=== PATIENT | male | born 1950 | race Caucasian/White ===

== ENCOUNTER → 2017-04-25 | Outpatient (CLI) | payer MEDICARE, OTHER ==
[~2017-04-25] MED LIST: ASACOL; BUDE3CAP5; CELEBREX; CYMBALTA; HYDR-3820; HYDR-3820 PO; HYDROCODONE; METO-333; Multivitamins/Minerals Therap PO; NEBI5TAB8 PO; NEOM28.33 TOP; PRAM0.257; SCOP1PAT; SIMV40TA4; SIMVASTATIN
--- NOTE | 2017-04-25 11:14 | Diagnostic Imaging Report ---
EXAMINATION: Two views of the right hip. INDICATION: Right hip pain. FINDINGS: There is no fracture, dislocation, or radiopaque foreign body. There is minimal degenerative change with subchondral sclerosis and cyst formation seen without joint space narrowing noted. IMPRESSION: Minimal degenerative changes. No fracture is seen. Dictated by: Dictated on workstation # [id number]
== END ==
LOC: RAD 09:45
PROVIDERS: ATTEND Nurse Practitioner Family
DX: M25.551 Pain in right hip (principal)
CPT/HCPCS: 73502

== ENCOUNTER → 2017-09-27 | Outpatient (CLI) | payer MEDICARE, OTHER | LOC: CARD 11:58 | PROVIDERS: ATTEND Nurse Practitioner Family | DX: R01.0 Benign and innocent cardiac murmurs (principal) | CPT/HCPCS: 93306 ==

== ENCOUNTER → 2017-12-19 | Outpatient (CLI) | payer MEDICARE, OTHER ==
[~2017-12-19] VITALS: Ht 170.2 cm; Wt 84.8 kg
[~2017-12-19] MED LIST changes: +REGADENOSON 0.4 MG/5 ML SYR (LEXISCAN) IV ONE; -SCOP1PAT; +SCOP1PAT11
[2017-12-19] MEDS: CATHETER FLUSH 10 ML SYR IV PRN ×2 (07:42→09:04)
[2017-12-19 09:03] VITALS: BP 148/79
--- NOTE | 2017-12-19 20:40 | STRESS TEST ---
DATE OF SERVICE: 12/19/2017 LEXISCAN MYOVIEW STRESS TEST REPORT REFERRING PHYSICIAN: Dr. Jones. Baseline heart rate is 69, baseline blood pressure 148/79, baseline EKG is sinus rhythm with no ischemic changes. In summary, the patient was injected with 10.74 mCi of technetium-99 Myoview and the resting images were obtained. Then, the patient received 0.4 mg of Lexiscan followed by 33.0 mCi of technetium-99 Myoview. Throughout the test, there were no EKG changes. The resting and stress images were reviewed and compared in the short axis, horizontal long axis, and vertical long axis views. Review of the images showed good radiotracer uptake with no ischemia or infarction on SPECT images. SSS is 2, SDS 2, TID value 1.09. On the gated images, the left ventricle appeared to be in normal size with normal contractility. Calculated ejection fraction 63%. CONCLUSION: 1. The patient tolerated Lexiscan well. 2. No ischemia or infarction on SPECT images. 3. Normal left ventricular size with normal contractility. Calculated ejection fraction 63%. Job ID: [id number] DocumentID: [id number] Dictated Date: 12/19/2017 15:59:40 Escalator Mechanic Date: 12/19/2017 20:39:34 Dictated By: RONALD BALDWIN MD
== END ==
LOC: CARD 07:23
PROVIDERS: ATTEND Internal Medicine Cardiovascular Disease
DX: I35.0 Nonrheumatic aortic (valve) stenosis (principal); I11.0 Hypertensive heart disease with heart failure; I51.9 Heart disease, unspecified; E78.2 Mixed hyperlipidemia; G20 Parkinson's disease
CPT/HCPCS: 78452; 93017

== ENCOUNTER 2019-01-14 22:54 | Emergency (ER) | payer MEDICARE, OTHER ==
[~2019-01-14] VITALS: Ht 170.2 cm; Wt 84.8 kg
[~2019-01-14 22:54] MED LIST changes: -REGADENOSON 0.4 MG/5 ML SYR (LEXISCAN) IV ONE
[2019-01-14] MEDS ORDERED: LACTATED RINGERS 1,000 ML IV ONE (23:00)
[2019-01-14 23:24] LABS: BASOPHILS # (AUTO) 0.1 10^3/uL (0.0-0.1); BASOPHILS % (AUTO) 1 % (0-10); EOSINOPHILS % (AUTO) 0 % (0-10); HEMATOCRIT 44 % (40-54); HEMOGLOBIN 14.7 G/DL (13.3-17.7); LYMPHOCYTES % (AUTO) 19 % (12-44); MEAN CORPUSCULAR HEMOGLOBIN 29 PG (25-34); MEAN CORPUSCULAR HGB CONC 33 G/DL (32-36); MEAN CORPUSCULAR VOLUME 88 FL (80-99); MEAN PLATELET VOLUME 9.5 FL (7.4-10.4); MONOCYTES # (AUTO) 0.8 X 10^3 (0.0-1.0); MONOCYTES % (AUTO) 7 % (0-12); NEUTROPHILS # (AUTO) 7.6 X 10^3 (1.8-7.8); NEUTROPHILS % (AUTO) 73 % (42-75); PLATELET COUNT 451 10^3/uL (130-400); RED CELL DISTRIBUTION WIDTH 14.2 % (10.0-14.5); WHITE BLOOD COUNT 10.5 10^3/uL (4.3-11.0)
[2019-01-14 23:31] LABS: INR 1.2 (0.8-1.4); PROTHROMBIN TIME PATIENT 15.3 SEC (12.2-14.7)
[2019-01-14 23:40] LABS: ALANINE AMINOTRANSFERASE 32 U/L (0-55); ALBUMIN 4.2 GM/DL (3.2-4.5); BILIRUBIN,TOTAL 0.4 MG/DL (0.1-1.0); CARBON DIOXIDE 21 MMOL/L (21-32); CHLORIDE 106 MMOL/L (98-107); POTASSIUM 3.2 MMOL/L (3.6-5.0); SODIUM 143 MMOL/L (135-145); TOTAL PROTEIN 8.4 GM/DL (6.4-8.2)
[2019-01-14 23:55] LABS: ACETAMINOPHEN < 10 UG/ML (10-30); ALKALINE PHOSPHATASE 51 U/L (40-136); BUN/CREATININE RATIO 12; CALCIUM 9.5 MG/DL (8.5-10.1); CREATINE KINASE 589 U/L (30-200); CREATININE SERUM 1.16 MG/DL (0.60-1.30); GFR ESTIMATED > 60; GLUCOSE 112 MG/DL (70-105); MAGNESIUM 2.5 MG/DL (1.8-2.4)
[2019-01-15 00:12] LABS: TSH (THYROID ANALYZER) 1.56 UIU/ML (0.35-4.94)
[2019-01-15] MEDS ORDERED: 1/2 NS W/KCL 20 MEQ/L 1,000 ML IV SCH (00:30)
[2019-01-15 00:48] LABS: AMMONIA 19 UMOL/L (11-32)
[2019-01-15 01:33] LABS: BILIRUBIN,URINE NEGATIVE (NEGATIVE); CLARITY,URINE CLEAR; COLOR,URINE YELLOW; GLUCOSE, URINE (UA) NEGATIVE (NEGATIVE); KETONES,URINE NEGATIVE (NEGATIVE); LEUKOCYTE ESTERASE ,URINE NEGATIVE (NEGATIVE); NITRITE,URINE NEGATIVE (NEGATIVE); PH,URINE 6 (5-9); PROTEIN,URINE 2+ (NEGATIVE); UROBILINOGEN,URINE 1 MG/DL (NORMAL)
[2019-01-15 01:48] LABS: AMPHETAMINE SCREEN, URINE NEGATIVE (NEGATIVE); BACTERIA,URINE TRACE /HPF; BARBITURATE SCREEN URINE NEGATIVE (NEGATIVE); BENZODIAZEPINES SCREEN URINE NEGATIVE (NEGATIVE); CANNABINOID SCREEN, URINE NEGATIVE (NEGATIVE); COCAINE SCREEN URINE NEGATIVE (NEGATIVE); METHADONE STAT NEGATIVE (NEGATIVE); METHAMPHETAMINE SCREEN URINE S NEGATIVE (NEGATIVE); OPIATE SCREEN URINE NEGATIVE (NEGATIVE); OXYCODONE STAT POSITIVE (NEGATIVE); PROPOXYPHENE STAT NEGATIVE (NEGATIVE); RBC,URINE RARE /HPF; SQUAMOUS EPITHELIAL CELL,UR RARE /HPF; TRICYCLIC ANTIDEPRESSANTS SCRE NEGATIVE (NEGATIVE)
--- NOTE | 2019-01-15 03:47 | NUR ---
PT AMBULATED ABOUT 15 FEET IN HALLWAY, INITIALLY UNSTEADY ON HIS FEET THE PT STUMBLED TWICE, BUT AFTER GETTING ADJUSTED TO WALKING WAS ABLE TO WALK TO THE HALLWAY AND RETURN TO HIS ROOM W/O COMPLICATIONS.
[2019-01-15] MEDS ORDERED: OXYC-464 (03:51)
--- NOTE | 2019-01-15 03:51 | ED General ---
General Chief Complaint: Trauma-Non Activation Stated Complaint: BACK PAIN Nursing Triage Note: PT STATES HE FELL 3 TIMES TODAY, ONCE YESTERDAY, DENIES STRIKING HIS HEAD OR LOC, STATES HIS RIGHT ARM IS THE ONLY PART OF HIS BODY THAT IS HURTING HIM. Nursing Sepsis Screen: No Definite Risk Source of Information: Patient (EXTREMELY POOR HISTORIAN), EMS, Other (EX [id number]) History of Present Illness Date Seen by Provider: Jan 14, 2019 Time Seen by Provider: 22:53 Initial Comments PT ARRIVES VIA EMS FROM HOME EX [id number] STATES SHE HAS NOT SEEN HIM OR TALKED TO HIM IN 2 WEEKS, AND TONIGHT SHE WENT OVER TO VISIT HIM, AND WHEN HE ANSWERED THE DOOR, HE SLOWLY WENT TO THE FLOOR, AND ONTO HIS KNEES. NO ACTUAL INJURY. HE WAS ABLE TO GET UP AND THEY PLAYED [employer] AND HE WAS FINE MENTALLY AND DID NOT HAVE ANY DIFFICULTY PLAYING GAME AND IN FACT, HE WON THE GAME. SHE LATER CALLED EMS BECAUSE HE WAS FEELING WEAK AND A LITTLE DIZZY PT DOES NOT VOICE ANY COMPLAINTS TO ME ON ARRIVAL EMS BRINGS IN BOTTLES OF MEDICATIONS--OXYCODONE AND PRAMIPEXOLE RX FOR OXYCODONE #180, FILLED ON 12/20/18, WITH ONLY 3 PILLS LEFT IN BOTTLE ( WAS 30 DAY SUPPLY) --EX -[id number] REPORTS THAT HE WILL TAKE 3-4 AT A TIME , SEVERAL TIMES A DAY, INSTEAD OF 1 AT A TIME--SHE REPORTS THAT HE HAS A HISTORY OF DRUG ABUSE. RX FOR PRAMIPEXOLE FOR #270 FILLED ON 11/02/18 IS EMPTY ( WAS 30 DAY SUPPLY) PT ALSO USES CBD OIL [id number] ARRIVES , AND DURING COURSE OF ER STAY, SHE STATES HE JUST TOLD HER THAT HE FELL IN THE BATHROOM AND HIT HIS RIGHT FOREARM AND RIGHT SIDE OF HEAD AND BROKE HIS HEARING AID--PT IS UNABLE TO STATE HOW LONG AGO THIS OCCURRED. PT DOES NOT ANSWER WHEN ASKED BY STAFF WHEN THIS OCCURRED, AND HE DOES NOT GIVE ANY DETAILS. ON REVIEW OF OLD RECORDS, THIS IS A CHRONIC PROBLEM FOR PT AND HAS HISTORY OF PARKINSON'S DISEASE, WITH FREQUENT FALLS, AND MILD DEMENTIA. ALSO HAS HISTORY OF CHRONIC BACK PAIN PCP: DR. KILGORE Allergies and Home Medications Allergies Coded Allergies: No Known Drug Allergies (Unverified , 05/05/11) Home Medications Hydrocodone/Acetaminophen 1 Each Tablet, 1 EA PO Q4H PRN for PAIN Prescribed by: JOSE RAFAEL RIOJAS on 04/26/161626 Neomycin Farrell/Bacitrac Zn/Poly 28.3 Gm Oint...g., 0 GM TOP BID PRN for drainage/ itching Prescribed by: JOSE RAFAEL RIOJAS on 04/26/161626 [Multivitamins/Minerals Therap] 1 EA TABLET, 1 EA PO DAILY@0700 Prescribed by: JOSE RAFAEL RIOJAS on 04/26/161626 Review of Systems Review of Systems Constitutional: see HPI, dizziness, weakness EENTM: no symptoms reported Respiratory: no symptoms reported Cardiovascular: no symptoms reported; No syncope Gastrointestinal: no symptoms reported Genitourinary: no symptoms reported Musculoskeletal: no symptoms reported Skin: no symptoms reported Psychiatric/Neurological: See HPI, Pre-Existing Deficit (HX OF TREMORS) Hematologic/Lymphatic: No Symptoms Reported Immunological/Allergic: no symptoms reported Past Hbrtclz-Xjvjwn-Qyfqgy Hx Patient Social History Alcohol Use: Regular Use Alcohol Beverage of Choice: Beer Recreational Drug Use: Yes (THC, AND RX DRUG ABUSE/OVERUSE) Smoking Status: Never a Smoker Recent Foreign Travel: No Contact w/Someone Who Travel: No Recent Infectious Disease Expo: No Immunizations Up To Date Tetanus Booster (TDap): Unknown Seasonal Allergies Seasonal Allergies: No Past Medical History Surgeries: Yes (CERVICAL SPINE [id number]; COLONOSCOPY) Orthopedic Respiratory: No Cardiac: Yes High Cholesterol, Hypertension Neurological: Yes Dementia, Parkinson's Disease Reproductive Disorders: No Sexually Transmitted Disease: No HIV/AIDS: No Genitourinary: No Gastrointestinal: Yes (DIVERTICULOSIS NOTED ON SCREENING COLONOSCOPY) Diverticulosis Musculoskeletal: Yes (CHRONIC BACK AND NECK PAIN--S/P CERVICAL SPINE SURGERY; FREQUENT FALLS, IMPAIRED MOBILITY. ) Chronic Back Pain Endocrine: No HEENT: Yes (WERS GLASSES) Hearing Impairment: Hard of Hearing, Bilateral Hearing Aide Cancer: No Psychosocial: No Integumentary: No Blood Disorders: No Family Medical History Cancer, Cerebral Aneurysm Physical Exam Vital Signs Vital Signs - First Documented 01/14/19 22:55 Temp 98.9 Pulse 77 Resp 20 B/P (MAP) 151/72 (98) Pulse Ox 97 O2 Delivery Room Air Capillary Refill : Less Than 3 Seconds Height, Weight, BMI Height: 5'7.00" Weight: 187lbs. 0.0oz. 84.096246pb; 29.3 BMI Method:Stated General Appearance: WD/WN, Other (UNKEMPT, VERY FLAT AFFECT, BLANK STARE WITH OCCASIONAL LOOKING AROUND AND TRACKING, IS NOT ANSWERING MY QUESTIONS AND IS NOT TALKING ON ARRIVAL, BUT TALKS TO [id number] WHEN SHE ARRIVES. SHE DOES NOT VOICE ANY CONCERNS ABOUT ANY CHANGE IN HIS NORMAL MENTAL STATUS. ) HEENT: PERRL/EOMI, Other (GLASSES--DIRTY AND BENT) Neck: Normal Inspection, Non Tender Respiratory: Normal Breath Sounds, No Accessory Muscle Use, No Respiratory Distress Cardiovascular: Regular Rate, Rhythm, No Edema, No JVD, No Murmur, Normal Peripheral Pulses Gastrointestinal: Non Tender, Soft Back: No CVA Tenderness, No Vertebral Tenderness Extremity: Normal Capillary Refill, Non Tender, No Calf Tenderness, No Pedal Edema Neurologic/Psychiatric: No Motor/Sensory Deficits (GROSSLY INTACT), Other ( MENTATION NOTED ABOVE. UNABLE TO DETERMINE ORIENTATION ON ARRIVAL, BUT APPEARS TO BE ORIENTED TO PERSON AND PT-SOETRT-ME-LAW. SLOW MENTATION, GROSS TREMOR OF RIGHT ARM. THIS EVENTUALLY STOPS. ) Skin: Normal Color, Warm/Dry, Other (OLD BRUISE TO RIGHT PROXIMAL FOREARM-- YELLOW/BROWN IN COLOR. FULL ROM AND IS NOT TENDER ON PALPATION ) Focused Exam Lactate Level 01/15/19 00:10: Lactic Acid Level 1.49 Lactic Acid Level Progress/Results/Core Measures Suspected Sepsis Recent Fever Within 48 Hours: No Infection Criteria Present: None New/Unexplained Altered Menta: Yes Sepsis Screen: No Definite Risk SIRS Temperature:98.9 Pulse: 77 Respiratory Rate: 20 Laboratory Tests 01/14/19 23:05: White Blood Count 10.5 Blood Pressure 151 /72 Mean: 98 01/15/19 00:10: Lactic Acid Level 1.49 Laboratory Tests 01/14/19 23:05: Creatinine 1.16, INR Comment 1.2, Platelet Count 451H, Total Bilirubin 0.4 Results/Orders Lab Results Laboratory Tests Test 01/14/19 01:26 01/14/19 23:05 01/15/19 00:10 Range/Units Urine Color YELLOW Urine Clarity CLEAR Urine pH 6 5-9 Urine Specific [place] 1.025 H 1.016-1.022 Urine Protein 2+ H NEGATIVE Urine Glucose (UA) NEGATIVE NEGATIVE Urine Ketones NEGATIVE NEGATIVE Urine Nitrite NEGATIVE NEGATIVE Urine Bilirubin NEGATIVE NEGATIVE Urine Urobilinogen 1 NORMAL MG/DL Urine Leukocyte Esterase NEGATIVE NEGATIVE Urine RBC (Auto) 1+ H NEGATIVE Urine RBC RARE /HPF Urine WBC NONE /HPF Urine Squamous Epithelial Cells RARE /HPF Urine Crystals NONE /LPF Urine Bacteria TRACE /HPF Urine Casts NONE /LPF Urine Mucus LARGE H /LPF Urine Culture Indicated NO Urine Opiates Screen NEGATIVE NEGATIVE Urine Oxycodone Screen POSITIVE H NEGATIVE Urine Methadone Screen NEGATIVE NEGATIVE Urine Propoxyphene Screen NEGATIVE NEGATIVE Urine Barbiturates Screen NEGATIVE NEGATIVE Ur Tricyclic Antidepressants Screen NEGATIVE NEGATIVE Urine Phencyclidine Screen NEGATIVE NEGATIVE Urine Amphetamines Screen NEGATIVE NEGATIVE Urine Methamphetamines Screen NEGATIVE NEGATIVE Urine Benzodiazepines Screen NEGATIVE NEGATIVE Urine Cocaine Screen NEGATIVE NEGATIVE Urine Cannabinoids Screen NEGATIVE NEGATIVE White Blood Count 10.5 4.3-11.0 10^3/uL Red Blood Count 5.05 4.35-5.85 10^6/uL Hemoglobin 14.7 13.3-17.7 G/DL Hematocrit 44 40-54 % Mean Corpuscular Volume 88 80-99 FL Mean Corpuscular Hemoglobin 29 25-34 PG Mean Corpuscular Hemoglobin Concent 33 32-36 G/DL Red Cell Distribution Width 14.2 10.0-14.5 % Platelet Count 451 H 130-400 10^3/uL Mean Platelet Volume 9.5 7.4-10.4 FL Neutrophils (%) (Auto) 73 42-75 % Lymphocytes (%) (Auto) 19 12-44 % Monocytes (%) (Auto) 7 0-12 % Eosinophils (%) (Auto) 0 0-10 % Basophils (%) (Auto) 1 0-10 % Neutrophils # (Auto) 7.6 1.8-7.8 X 10^3 Lymphocytes # (Auto) 2.0 1.0-4.0 X 10^3 Monocytes # (Auto) 0.8 0.0-1.0 X 10^3 Eosinophils # (Auto) 0.0 0.0-0.3 10^3/uL Basophils # (Auto) 0.1 0.0-0.1 10^3/uL Prothrombin Time 15.3 H 12.2-14.7 SEC INR Comment 1.2 0.8-1.4 Activated Partial Thromboplast Time 36 H 24-35 SEC Sodium Level 143 135-145 MMOL/L Potassium Level 3.2 L 3.6-5.0 MMOL/L Chloride Level 106 98-107 MMOL/L Carbon Dioxide Level 21 21-32 MMOL/L Anion Gap 16 H 5-14 MMOL/L Blood Urea Nitrogen 14 7-18 MG/DL Creatinine 1.16 0.60-1.30 MG/DL Estimat Glomerular Filtration Rate > 60 BUN/Creatinine Ratio 12 Glucose Level 112 H 70-105 MG/DL Calcium Level 9.5 8.5-10.1 MG/DL Corrected Calcium 9.3 8.5-10.1 MG/DL Magnesium Level 2.5 H 1.8-2.4 MG/DL Total Bilirubin 0.4 0.1-1.0 MG/DL Aspartate Amino Transf (AST/SGOT) 29 5-34 U/L Alanine Aminotransferase (ALT/SGPT) 32 0-55 U/L Alkaline Phosphatase 51 40-136 U/L Ammonia 19 11-32 UMOL/L Total Creatine Kinase 589 H 30-200 U/L Creatine Kinase MB 2.0 <6.6 NG/ML Troponin I < 0.028 <0.028 NG/ML Total Protein 8.4 H 6.4-8.2 GM/DL Albumin 4.2 3.2-4.5 GM/DL TSH Mcpherson Testing 1.56 0.35-4.94 UIU/ML Acetaminophen Level < 10 L 10-30 UG/ML Serum Alcohol < 10 <10 MG/DL Lactic Acid Level 1.49 0.50-2.00 MMOL/L My Orders Orders - ZACH DEL RIO DO Saline Lock/Iv-Start (01/14/19:00) Chest 1 View, Ap/Pa Only (01/14/19:00) Acetaminophen (01/14/19:00) Alcohol (01/14/19:00) Ammonia (01/14/19:00) Cbc With Automated Diff (01/14/19:) Comprehensive Metabolic Panel (01/14/19:) Creatine Kinase (01/14/19:) Creatine Kinase Mb (01/14/19:) Drug Screen Stat (Urine) (01/14/19:) Lactic Acid Analyzer (01/14/19:) Magnesium (01/14/19:00) Protime With Inr (01/14/19:00) Partial Thromboplastin Time (01/14/19 23:00) Thyroid Analyzer (01/14/19 23:00) Troponin I (01/14/19 23:00) Ua Culture If Indicated (01/14/19 23:00) Blood Culture (01/14/19 23:00) Saline Lock/Iv-Start (01/14/19 23:00) Lactated Ringers (Lr 1000 Ml Iv Solution (01/14/19 23:00) Ekg Tracing (01/14/19:00) Catheter(Urinary) Insert & Ass 03,15 (01/14/19 23:00) O2 (01/14/19 23:00) Monitor-Rhythm Ecg Trace Only (01/14/19:00) Ct Head/Cervical Spine Wo (01/14/19 23:45) 1/2 Ns W/Kcl 20 Meq/L (0.45% Sodium Chlo (01/15/19 00:30) Medications Given in ED Current Medications Medications Dose Ordered Sig/Kendy Route Start Time Stop Time Status Last Admin Dose Admin Lactated Ringer's 1,000 ml @ 0 mls/hr Q0M ONCE IV 01/14/19 23:00 01/14/19 23:03 DC 01/14/19 23:10 1,000 MLS/HR Vital Signs/I&O 01/14/19 22:55 Temp 98.9 Pulse 77 Resp 20 B/P (MAP) 151/72 (98) Pulse Ox 97 O2 Delivery Room Air Capillary Refill : Less Than 3 Seconds Blood Pressure Mean: 98 Progress Note : Progress Note PT HAD NO COMPLAINTS FOR ENTIRE ER STAY 0205-PT STATES HE FEELS FINE AND WANTS TO GO BACK HOME, IV FLUIDS INFUSING 0345--PT ABLE TO AMBULATE IN ROOM AND TO ER HALLWAY ON OWN, PT STATES HE USES A WALKER AT HOME. PT FEELS COMFORTABLE GOING HOME. STATES HE FEELS FINE. PT APPEARS A LITTLE MORE ANIMATED AND IS TALKING A LITTLE MORE, AND ABLE TO FOLLOW COMMANDS, DURING ER STAY. VITALS STABLE NO DETERIORATION IN PT'S CONDITION DURING ER STAY ECG Initial ECG Impression Date: Jan 14, 2019 Initial ECG Impression Time: 23:22 Initial ECG Rate: 74 Initial ECG Rhythm: Normal Sinus Diagnostic Imaging Comments CXR--NO ACUTE PROCESS, PENDING RADIOLOGIST REVIEW CT HEAD/CERVICAL SPINE--NO ACUTE PROCESS, POST SURGICAL CHANGES C3-C4--PER [facility] VIA FAX @ [id number] Reviewed: Reviewed by Me Departure Impression Primary Impression: Generalized weakness Additional Impressions: EXCESSIVE USE OF OXYCODONE Frequent falls Parkinson disease MILD HYPOKALEMIA Disposition: HOME, SELF-CARE Condition: Stable Departure-Patient Inst. Referrals: MATTIE KILGORE MD (PCP/Family) Primary Care Physician Patient Instructions: Drug Abuse Treatment, Generalized Weakness (DC), Getting Up From a Fall, Going Up and Down Curbs or Stairs With a Walker or Crutches, How to Use a Walker, Preventing Falls in the Older Adult Add. Discharge Instructions: USE YOUR WALKER AT ALL TIMES SLOW POSITION CHANGES DO NOT TAKE MORE PAIN MEDICATION THAN PRESCRIBED!!! LOTS OF CLEAR LIQUIDS FOLLOW UP WITH YOUR DR IN 1-2 DAYS FOR FURTHER CARE All discharge instructions reviewed with patient and/or family. Voiced understanding. ZACH DEL RIO DO Jan 15, 2019 03:51
[2019-01-15 05:49] VITALS: BP 149/84
--- NOTE | 2019-01-15 06:53 | Diagnostic Imaging Report ---
PROCEDURE: CT head and CT cervical spine without contrast. TECHNIQUE: Multiple contiguous axial images were obtained through the brain and cervical spine without the use of intravenous contrast. Sagittal and coronal reformations through the cervical spine were then performed. Auto Exposure Controls were utilized during the CT exam to meet ALARA standards for radiation dose reduction. INDICATION: Status post fall. CORRELATION STUDY: 04/14/2016 FINDINGS: CT HEAD: Ventricles and sulci age-appropriate. No abnormal areas of decreased attenuation to suggest edema. No midline shift or mass effect. No intracranial hemorrhage. Basilar cisterns maintained. Bony calvarium intact. Paranasal sinuses and mastoid air cells clear. Examination is degraded by some patient motion artifact. CT CERVICAL SPINE: There is straightening and reversal of normal cervical lordosis. Postop change of prior anterior cervical decompression and fusion at C3-C4 level present. The vertebral body heights appear fairly well maintained with evidence for acute bony abnormality. Odontoid intact. The posterior elements are intact but do demonstrate asymmetric areas of hypertrophic facet arthropathy and asymmetric areas of effusion. Diffuse disc space narrowing. Minimal osseous encroachment upon the neural foramina and spinal canal present. High degree stenosis of the canal however does not appear to be suggested. IMPRESSION: CT HEAD: 1. Negative for acute traumatic intracranial abnormality. CT CERVICAL SPINE: 1. Negative for acute fracture or traumatic subluxation. A preliminary report was provided by [facility]. Dictated by: Dictated on workstation # [id number]
--- NOTE | 2019-01-15 07:01 | Diagnostic Imaging Report ---
INDICATION: Post fall. TECHNIQUE: Single view chest 11:32 PM. CORRELATION STUDY: 05/05/2011 FINDINGS: The heart size, mediastinal configuration and pulmonary vascularity are within normal limits. Likely chronic appearing change about the lung parenchyma. No infiltrate. Old right-sided rib fracture deformities. IMPRESSION: 1. Stable chest demonstrating no acute abnormality. Dictated by: Dictated on workstation # [id number]
== END 2019-01-15 06:00 | disposition home or self-care (01) ==
LOC: EDUNIT# 22:54 → ER 22:55
DX: R53.1 Weakness (principal); G20 Parkinson's disease; F02.80 Dementia in other diseases classified elsewhere, unspecified severity, without behavioral disturbance, psychotic disturbance, mood disturbance, and anxiety; E87.6 Hypokalemia; R29.6 Repeated falls; F12.10 Cannabis abuse, uncomplicated; E78.00 Pure hypercholesterolemia, unspecified; I10 Essential (primary) hypertension; Z87.19 Personal history of other diseases of the digestive system; Z98.1 Arthrodesis status
CPT/HCPCS: 36415; 70450; 71045; 72125; 80053; 80306; 80320; 80329; 81000; 82140; 82550; 82553; 83605; 83735; 84443; 84484; 85025; 85610; 85730; 87040; 93005; 93041; 96360; 96361

== ENCOUNTER 2019-03-14 14:13 | Emergency (ER) | payer MEDICARE, OTHER ==
[~2019-03-14] VITALS: Ht 170.2 cm; Wt 84.8 kg
[~2019-03-14 14:13] MED LIST changes: +OXYC-464
[2019-03-14] MEDS ORDERED: LACTATED RINGERS 1,000 ML IV ONE (14:24)
--- OUTSIDE RECORDS SUMMARY | 2019-03-14 14:24 | XMS REPORT | Continuity of Care Document ---
Author Organization Unknown Address Unknown Allergies Active Description Code Type Severity Reaction Onset Reported/Identified Relationship to Patient Clinical Status Yes No Known Drug Allergies [id number] Drug Allergy Unknown N/A 05/05/2011 Medications There is no data. Problems Date Dx Coded Attending Type Code Diagnosis Diagnosed By 05/26/2011 Ot 327.23 OBSTRUCTIVE SLEEP APNEA (ADULT) (PEDIATR 12/10/2011 Ot 722.52 LUMB/LUMBOSAC DISC DEGEN 12/10/2011 Ot 724.1 PAIN IN THORACIC SPINE 12/10/2011 Ot V57.1 PHYSICAL THERAPY NEC 09/18/2012 Ot 272.4 HYPERLIPIDEMIA NEC/NOS 09/18/2012 Ot 401.9 HYPERTENSION NOS 09/18/2012 Ot 562.10 DIVERTICULOSIS COLON (W/O MENT OF HEMORR 09/18/2012 Ot 715.90 OSTEOARTHROS NOS-UNSPEC 09/18/2012 Ot V16.0 FAMILY HX-GI MALIGNANCY 09/18/2012 Ot V76.51 SCREEN MAL NEOP- COLON 12/26/2015 Ot 276.51 12/26/2015 Ot 780.79 12/26/2015 Ot 786.05 12/26/2015 Ot 787.02 12/26/2015 Ot 786.05 12/26/2015 Ot 724.2 12/26/2015 Ot V72.84 12/29/2015 Ot 276.51 12/29/2015 Ot 780.79 12/29/2015 Ot 786.05 12/29/2015 Ot 787.02 12/29/2015 Ot 786.05 12/29/2015 Ot 724.2 12/29/2015 Ot V72.84 12/31/2015 MAGUI GAR, MATTIE Juarez Ot R26.0 01/01/2016 MATTIE KILGORE MD Ot R26.0 01/12/2016 Ot 276.51 01/12/2016 Ot 780.79 01/12/2016 Ot 786.05 01/12/2016 Ot 787.02 01/12/2016 Ot 786.05 01/12/2016 Ot 724.2 01/12/2016 Ot V72.84 01/12/2016 MAGUI GAR, MATTIE Juarez Ot R26.0 01/13/2016 Ot 276.51 01/13/2016 Ot 780.79 01/13/2016 Ot 786.05 01/13/2016 Ot 787.02 01/13/2016 Ot 786.05 01/13/2016 Ot 724.2 01/13/2016 Ot V72.84 01/13/2016 MAGUI GAR, MATTIE Juarez Ot R26.0 01/13/2016 MAGUI GAR, MATTIE Juarez Ot M62.81 01/13/2016 MAGUI GAR, MATTIE Juarez Ot M62.81 01/20/2016 MAGUI GAR, MATTIE Juarez Ot R26.0 02/06/2016 MAGUI GAR, MATTIE Juarez Ot M62.81 MUSCLE WEAKNESS (GENERALIZED) 02/06/2016 MATTIE KILGORE MD Ot M62.81 MUSCLE WEAKNESS (GENERALIZED) 02/13/2016 Ot 276.51 DEHYDRATION 02/13/2016 Ot 780.79 OTH MALAISE FATIGUE 02/13/2016 Ot 786.05 SHORTNESS OF BREATH 02/13/2016 Ot 787.02 NAUSEA ALONE 02/13/2016 Ot 786.05 SHORTNESS OF BREATH 02/13/2016 Ot 724.2 LUMBAGO 02/13/2016 Ot V72.84 EXAM PRE-OPERATIVE NOS 02/13/2016 MAGUI GAR, MATTIE Juarez Ot R26.0 ATAXIC GAIT 02/13/2016 MAGUI GAR, MATTIE Juarez Ot M62.81 MUSCLE WEAKNESS (GENERALIZED) 02/16/2016 MAGUI GAR, MATTIE Juarez Ot M46.05 SPINAL ENTHESOPATHY, THORACOLUMBAR REGIO 02/16/2016 MAGUI GAR, MATTIE Juarez Ot M46.05 SPINAL ENTHESOPATHY, THORACOLUMBAR REGIO 02/18/2016 MAGUI GAR, MATTIE Juarez Ot M62.81 MUSCLE WEAKNESS (GENERALIZED) 03/04/2016 MAGUI GAR, MATTIE Juarez Ot M46.05 SPINAL ENTHESOPATHY, THORACOLUMBAR REGIO 04/14/2016 Ot 276.51 DEHYDRATION 04/14/2016 Ot 780.79 OTH MALAISE FATIGUE 04/14/2016 Ot 786.05 SHORTNESS OF BREATH 04/14/2016 Ot 787.02 NAUSEA ALONE 04/14/2016 Ot 786.05 SHORTNESS OF BREATH 04/14/2016 Ot 724.2 LUMBAGO 04/14/2016 Ot V72.84 EXAM PRE-OPERATIVE NOS 04/14/2016 MAGUI GAR, MATTIE Juarez Ot R26.0 ATAXIC GAIT 04/14/2016 MAGUI GAR, MATTIE Juarez Ot M46.05 SPINAL ENTHESOPATHY, THORACOLUMBAR REGIO 04/20/2016 JOSE RAFAEL RIOJAS MD Ot E78.0 PURE HYPERCHOLESTEROLEMIA 04/20/2016 JOSE RAFAEL RIOJAS MD E Ot F10.20 ALCOHOL DEPENDENCE, UNCOMPLICATED 04/20/2016 JOSE RAFAEL RIOJAS MD Ot F12.90 CANNABIS USE, UNSPECIFIED, UNCOMPLICATED 04/20/2016 JOSE RAFAEL RIOJAS MD Ot G20 PARKINSON'S DISEASE 04/20/2016 JOSE RAFAEL RIOJAS MD E Ot I10 ESSENTIAL (PRIMARY) HYPERTENSION 04/20/2016 JOSE RAFAEL RIOJAS MD Ot K50.90 CROHN'S DISEASE, UNSPECIFIED, WITHOUT CO 04/20/2016 JOSE RAFAEL RIOJAS MD Ot M47.892 OTHER SPONDYLOSIS, CERVICAL REGION 04/20/2016 JOSE RAFAEL RIOJAS MD Ot S20.311D ABRASION OF RIGHT FRONT WALL OF THORAX, 04/20/2016 JOSE RAFAEL RIOJAS MD Ot S50.811D ABRASION OF RIGHT FOREARM, SUBSEQUENT EN 04/20/2016 JOSE RAFAEL RIOJAS MD E Ot S70.211D ABRASION, RIGHT HIP, SUBSEQUENT ENCOUNTE 04/20/2016 JOSE RAFAEL RIOJAS MD E Ot S80.211D ABRASION, RIGHT KNEE, SUBSEQUENT ENCOUNT 04/20/2016 JOSE RAFAEL RIOJAS MD E Ot W19.XXXD UNSPECIFIED FALL, SUBSEQUENT ENCOUNTER 04/20/2016 JOSE RAFAEL RIOJAS MD Ot Y92.[address] IN APARTMENT PLACE 04/20/2016 JOSE RAFAEL RIOJAS MD Ot Z91.81 HISTORY OF FALLING 04/21/2016 JOSE RAFAEL RIOJAS MD Ot E78.0 PURE HYPERCHOLESTEROLEMIA 04/21/2016 JOSE RAFAEL RIOJAS MD Ot F10.20 ALCOHOL DEPENDENCE, UNCOMPLICATED 04/21/2016 JOSE RAFAEL RIOJAS MD Ot F12.90 CANNABIS USE, UNSPECIFIED, UNCOMPLICATED 04/21/2016 JOSE RAFAEL RIOJAS MD E Ot G20 PARKINSON'S DISEASE 04/21/2016 RIOJAS MD, JOSE RAFAEL E Ot I10 ESSENTIAL (PRIMARY) HYPERTENSION 04/21/2016 JOSE RAFAEL RIOJAS MD E Ot K50.90 CROHN'S DISEASE, UNSPECIFIED, WITHOUT CO 04/21/2016 JOSE RAFAEL RIOJAS MD Ot M47.892 OTHER SPONDYLOSIS, CERVICAL REGION 04/21/2016 JOSE RAFAEL RIOJAS MD Ot S20.311D ABRASION OF RIGHT FRONT WALL OF THORAX, 04/21/2016 JOSE RAFAEL RIOJAS MD Ot S50.811D ABRASION OF RIGHT FOREARM, SUBSEQUENT EN 04/21/2016 JOSE RAFAEL RIOJAS MD E Ot S70.211D ABRASION, RIGHT HIP, SUBSEQUENT ENCOUNTE 04/21/2016 JOSE RAFAEL RIOJAS MD E Ot S80.211D ABRASION, RIGHT KNEE, SUBSEQUENT ENCOUNT 04/21/2016 JOSE RAFAEL RIOJAS MD Ot W19.XXXD UNSPECIFIED FALL, SUBSEQUENT ENCOUNTER 04/21/2016 JOSE RAFAEL RIOJAS MD E Ot Y92.[address] IN APARTMENT PLACE 04/21/2016 JOSE RAFAEL RIOJAS MD E Ot Z91.81 HISTORY OF FALLING 04/27/2016 JOSE RAFAEL RIOJAS MD E Ot E78.0 PURE HYPERCHOLESTEROLEMIA 04/27/2016 JOSE RAFAEL RIOJAS MD E Ot F10.20 ALCOHOL DEPENDENCE, UNCOMPLICATED 04/27/2016 JOSE RAFAEL RIOJAS MD E Ot F12.90 CANNABIS USE, UNSPECIFIED, UNCOMPLICATED 04/27/2016 JOSE RAFAEL RIOJAS MD E Ot G20 PARKINSON'S DISEASE 04/27/2016 JOSE RAFAEL RIOJAS MD Ot I10 ESSENTIAL (PRIMARY) HYPERTENSION 04/27/2016 JOSE RAFAEL RIOJAS MD E Ot K50.90 CROHN'S DISEASE, UNSPECIFIED, WITHOUT CO 04/27/2016 JOSE RAFAEL RIOJAS MD Ot M47.892 OTHER SPONDYLOSIS, CERVICAL REGION 04/27/2016 JOSE RAFAEL RIOJAS MD E Ot M47.896 OTHER SPONDYLOSIS, LUMBAR REGION 04/27/2016 JOSE RAFAEL RIOJAS MD Ot S20.311D ABRASION OF RIGHT FRONT WALL OF THORAX, 04/27/2016 JOSE RAFAEL RIOJAS MD Ot S50.811D ABRASION OF RIGHT FOREARM, SUBSEQUENT EN 04/27/2016 JOSE RAFAEL RIOJAS MD Ot S70.211D ABRASION, RIGHT HIP, SUBSEQUENT ENCOUNTE 04/27/2016 JOSE RAFAEL RIOJAS MD E Ot S80.211D ABRASION, RIGHT KNEE, SUBSEQUENT ENCOUNT 04/27/2016 BEULAH GAR, JOSE RAFAEL Yang Ot W19.XXXD UNSPECIFIED FALL, SUBSEQUENT ENCOUNTER 04/27/2016 BEULAH GAR, JOSE RAFAEL Yang Ot Y92.[address] IN APARTMENT PLACE 04/27/2016 BEULAH GAR, JOSE RAFAEL Yang Ot Z91.81 HISTORY OF FALLING 04/25/2017 Ot V72.84 EXAM PRE-OPERATIVE NOS 04/25/2017 MAGUI GAR, MATTIE Juarez Ot R26.0 ATAXIC GAIT 04/25/2017 MAGUI GAR, MATTIE Juarez Ot M46.05 SPINAL ENTHESOPATHY, THORACOLUMBAR REGIO 04/26/2017 DG MADDEN VIDEO CONFERENCE SPECIALIST Ot M25.551 PAIN IN RIGHT HIP 05/17/2017 DG MADDEN VIDEO CONFERENCE SPECIALIST Ot M25.551 PAIN IN RIGHT HIP 09/23/2017 Ot V72.84 EXAM PRE-OPERATIVE NOS 09/23/2017 MAGUI GAR, MATTIE Juarez Ot R26.0 ATAXIC GAIT 09/23/2017 MAGUI GAR, MATTIE Juarez Ot M46.05 SPINAL ENTHESOPATHY, THORACOLUMBAR REGIO 09/23/2017 DG MADDEN VIDEO CONFERENCE SPECIALIST Ot M25.551 PAIN IN RIGHT HIP 10/19/2017 DG MADDEN VIDEO CONFERENCE SPECIALIST Ot R01.0 BENIGN AND INNOCENT CARDIAC MURMURS 12/20/2017 RONALD BALDWIN MD Ot E78.2 MIXED HYPERLIPIDEMIA 12/20/2017 RONALD BALDWIN MD Ot G20 PARKINSON'S DISEASE 12/20/2017 RONALD BALDWIN MD Ot I11.0 HYPERTENSIVE HEART DISEASE WITH HEART FA 12/20/2017 RONALD BALDWIN MD Ot I35.0 NONRHEUMATIC AORTIC (VALVE) STENOSIS 12/20/2017 RONALD BALDWIN MD Ot I51.9 HEART DISEASE, UNSPECIFIED 12/25/2017 RONALD BALDWIN MD Ot E78.2 MIXED HYPERLIPIDEMIA 12/25/2017 RONALD BALDWIN MD Ot G20 PARKINSON'S DISEASE 12/25/2017 RONALD BALDWIN MD Ot I11.0 HYPERTENSIVE HEART DISEASE WITH HEART FA 12/25/2017 RONALD BALDWIN MD Ot I35.0 NONRHEUMATIC AORTIC (VALVE) STENOSIS 12/25/2017 RONALD BALDWIN MD Ot I51.9 HEART DISEASE, UNSPECIFIED 01/10/2018 NICOLASA GAR, RONALD Perez Ot E78.2 MIXED HYPERLIPIDEMIA 01/10/2018 NICOLASA GAR, RONALD Perez Ot G20 PARKINSON'S DISEASE 01/10/2018 NICOLASA GAR, RONALD Perez Ot I11.0 HYPERTENSIVE HEART DISEASE WITH HEART FA 01/10/2018 NICOLASA GAR, RONALD Perez Ot I35.0 NONRHEUMATIC AORTIC (VALVE) STENOSIS 01/10/2018 NICOLASA GAR, RONALD Perez Ot I51.9 HEART DISEASE, UNSPECIFIED 01/15/2019 QUANG DO, ZACH K Ot E78.00 PURE HYPERCHOLESTEROLEMIA, UNSPECIFIED 01/15/2019 QUANG DO, ZACH K Ot E87.6 HYPOKALEMIA 01/15/2019 QUANG DO, ZACH K Ot F02.80 DEMENTIA IN OTH DISEASES CLASSD ELSWHR W 01/15/2019 QUANG DO, ZACH K Ot F12.10 CANNABIS ABUSE, UNCOMPLICATED 01/15/2019 QUANG DO, ZACH K Ot G20 PARKINSON'S DISEASE 01/15/2019 QUANG DO, ZACH K Ot I10 ESSENTIAL (PRIMARY) HYPERTENSION 01/15/2019 QUANG DO, ZACH K Ot M54.9 DORSALGIA, UNSPECIFIED 01/15/2019 QUANG DO, ZACH K Ot R29.6 REPEATED FALLS 01/15/2019 QUANG DO, ZACH K Ot R53.1 WEAKNESS 01/15/2019 QUANG DO, ZACH K Ot Z87.19 PERSONAL HISTORY OF OTHER DISEASES OF TH 01/15/2019 QUANG ZACH K Ot Z98.1 ARTHRODESIS STATUS 01/17/2019 QAUNG DO, ZACH K Ot E78.00 PURE HYPERCHOLESTEROLEMIA, UNSPECIFIED 01/17/2019 QUANG DO, ZACH K Ot E87.6 HYPOKALEMIA 01/17/2019 QUANG DO, ZACH K Ot F02.80 DEMENTIA IN OTH DISEASES CLASSD ELSWHR W 01/17/2019 QUANG DO ZACH K Ot F12.10 CANNABIS ABUSE, UNCOMPLICATED 01/17/2019 QUANG DO, ZACH K Ot G20 PARKINSON'S DISEASE 01/17/2019 QUANG DO, ZACH K Ot I10 ESSENTIAL (PRIMARY) HYPERTENSION 01/17/2019 QUANG DO, ZACH K Ot M54.9 DORSALGIA, UNSPECIFIED 01/17/2019 VINT[place] , ZACH Trinidad Ot R29.6 REPEATED FALLS 01/17/2019 [place] , ZACH Trinidad Ot R53.1 WEAKNESS 01/17/2019 [place] ZACH DEXTER Ot Z87.19 PERSONAL HISTORY OF OTHER DISEASES OF 01/17/2019 QUANG ZACH DEXTER Ot Z98.1 ARTHRODESIS STATUS 01/20/2019 [place] ZACH DEXTER Ot E78.00 PURE HYPERCHOLESTEROLEMIA, UNSPECIFIED 01/20/2019 [place] DO, ZACH K Ot E87.6 HYPOKALEMIA 01/20/2019 [place] DO, ZACH K Ot F02.80 DEMENTIA IN OTH DISEASES CLASSD ELSWHR W 01/20/2019 QUANG DO ZACH K Ot F12.10 CANNABIS ABUSE, UNCOMPLICATED 01/20/2019 [place] DO, ZACH K Ot G20 PARKINSON'S DISEASE 01/20/2019 [facility] ZACH K Ot I10 ESSENTIAL (PRIMARY) HYPERTENSION 01/20/2019 [facility] ZACH Trinidad Ot M54.9 DORSALGIA, UNSPECIFIED 01/20/2019 [facility], ZACH Trinidad Ot R29.6 REPEATED FALLS 01/20/2019 [place] ZACH DEXTER Ot R53.1 WEAKNESS 01/20/2019 QUANG DOZACH Ot Z87.19 PERSONAL HISTORY OF OTHER DISEASES OF 01/20/2019 QUANG ZACH DEXTER Ot Z98.1 ARTHRODESIS STATUS 01/29/2019 Ot 276.51 DEHYDRATION 01/29/2019 Ot 780.79 OTH MALAISE FATIGUE 01/29/2019 Ot 786.05 SHORTNESS OF BREATH 01/29/2019 Ot 787.02 NAUSEA ALONE 01/29/2019 Ot 786.05 SHORTNESS OF BREATH 01/29/2019 Ot 724.2 LUMBAGO 01/30/2019 [facility] ZACH Trinidad Ot E78.00 PURE HYPERCHOLESTEROLEMIA, UNSPECIFIED 01/30/2019 [place] DO, ZACH K Ot E87.6 HYPOKALEMIA 01/30/2019 QUANG DO, ZACH K Ot F02.80 DEMENTIA IN OTH DISEASES CLASSD ELSWHR W 01/30/2019 QUANG DO ZACH K Ot F12.10 CANNABIS ABUSE, UNCOMPLICATED 01/30/2019 QUANG DO, ZACH K Ot G20 PARKINSON'S DISEASE 01/30/2019 ZACH DEL RIO DO Ot I10 ESSENTIAL (PRIMARY) HYPERTENSION 01/30/2019 ZACH DEL RIO DO Ot M54.9 DORSALGIA, UNSPECIFIED 01/30/2019 ZACH DEL RIO DO Ot R29.6 REPEATED FALLS 01/30/2019 ZACH DEL RIO DO Ot R53.1 WEAKNESS 01/30/2019 ZACH DEL RIO DO Ot Z87.19 PERSONAL HISTORY OF OTHER DISEASES OF TH 01/30/2019 ZACH DEL RIO DO Ot Z98.1 ARTHRODESIS STATUS Procedures There is no data. Results Test Result Range Complete urinalysis with reflex to culture - 01/14/19 01:26 Urine color determination YELLOW NRG Urine clarity determination CLEAR NRG Urine pH measurement by test strip 6 5-9 Specific gravity of urine by test strip 1.025 1.016-1.022 Urine protein assay by test strip, semi-quantitative 2+ NEGATIVE Urine glucose detection by automated test strip NEGATIVE NEGATIVE Erythrocytes detection in urine sediment by light microscopy 1+ NEGATIVE Urine ketones detection by automated test strip NEGATIVE NEGATIVE Urine nitrite detection by test strip NEGATIVE NEGATIVE Urine total bilirubin detection by test strip NEGATIVE NEGATIVE Urine urobilinogen measurement by automated test strip (mass/volume) 1 mg/dL NORMAL Urine leukocyte esterase detection by dipstick NEGATIVE NEGATIVE Automated urine sediment erythrocyte count by microscopy (number/high power field) RARE NRG Automated urine sediment leukocyte count by microscopy (number/high power field) NONE NRG Bacteria detection in urine sediment by light microscopy TRACE NRG Squamous epithelial cells detection in urine sediment by light microscopy RARE NRG Crystals detection in urine sediment by light microscopy NONE NRG Casts detection in urine sediment by light microscopy NONE NRG Mucus detection in urine sediment by light microscopy LARGE NRG Complete urinalysis with reflex to culture NO NRG Urine drug screening test - 01/14/19 01:26 Urine phencyclidine detection by screening method NEGATIVE NEGATIVE Urine benzodiazepines detection by screening method NEGATIVE NEGATIVE Urine cocaine detection NEGATIVE NEGATIVE Urine amphetamines detection by screening method NEGATIVE NEGATIVE Urine methamphetamine detection by screening method NEGATIVE NEGATIVE Urine cannabinoids detection by screening method NEGATIVE NEGATIVE Urine opiates detection by screening method NEGATIVE NEGATIVE Urine barbiturates detection NEGATIVE NEGATIVE Screening urine tricyclic antidepressants detection NEGATIVE NEGATIVE Urine methadone detection by screening method NEGATIVE NEGATIVE Urine oxycodone detection POSITIVE NEGATIVE Urine propoxyphene detection NEGATIVE NEGATIVE Complete blood count (CBC) with automated white blood cell (WBC) differential - 01/14/19 23:05 Blood leukocytes automated count (number/volume) 10.5 10*3/uL 4.3-11.0 Blood erythrocytes automated count (number/volume) 5.05 10*6/uL 4.35-5.85 Venous blood hemoglobin measurement (mass/volume) 14.7 g/dL 13.3-17.7 Blood hematocrit (volume fraction) 44 % 40-54 Automated erythrocyte mean corpuscular volume 88 [foz_us] 80-99 Automated erythrocyte mean corpuscular hemoglobin (mass per erythrocyte) 29 pg 25-34 Automated erythrocyte mean corpuscular hemoglobin concentration measurement (mass/volume) 33 g/dL 32-36 Automated erythrocyte distribution width ratio 14.2 % 10.0- 14.5 Automated blood platelet count (count/volume) 451 10*3/uL 130-400 Automated blood platelet mean volume measurement 9.5 [foz_us] 7.4-10.4 Automated blood neutrophils/100 leukocytes 73 % 42-75 Automated blood lymphocytes/100 leukocytes 19 % 12-44 Blood monocytes/100 leukocytes 7 % 0-12 Automated blood eosinophils/100 leukocytes 0 % 0-10 Automated blood basophils/100 leukocytes 1 % 0-10 Blood neutrophils automated count (number/volume) 7.6 10*3 1.8-7.8 Blood lymphocytes automated count (number/volume) 2.0 10*3 1.0-4.0 Blood monocytes automated count (number/volume) 0.8 10*3 0.0- 1.0 Automated eosinophil count 0.0 10*3/uL 0.0-0.3 Automated blood basophil count (count/volume) 0.1 10*3/uL 0.0-0.1 PT panel in platelet poor plasma by coagulation assay - 01/14/19 23:05 Prothrombin time (PT) in platelet poor plasma by coagulation assay 15.3 s 12.2-14.7 INR in platelet poor plasma or blood by coagulation assay 1.2 0.8-1.4 Activated partial thromboplastin time (aPTT) in platelet poor plasma bycoagulation assay - 01/14/19 23:05 Activated partial thromboplastin time (aPTT) in platelet poor plasma bycoagulation assay 36 s 24-35 Comprehensive metabolic panel - 01/14/19 23:05 Serum or plasma sodium measurement (moles/volume) 143 mmol/L 135-145 Serum or plasma potassium measurement (moles/volume) 3.2 mmol/L 3.6-5.0 Serum or plasma chloride measurement (moles/volume) 106 mmol/L 98-107 Carbon dioxide 21 mmol/L 21-32 Serum or plasma anion gap determination (moles/volume) 16 mmol/L 5-14 Serum or plasma urea nitrogen measurement (mass/volume) 14 mg/dL 7-18 Serum or plasma creatinine measurement (mass/volume) 1.16 mg/dL 0.60-1.30 Serum or plasma urea nitrogen/creatinine mass ratio 12 NRG Serum or plasma creatinine measurement with calculation of estimated glomerular filtration rate > NRG Serum or plasma glucose measurement (mass/volume) 112 mg/dL 70-105 Serum or plasma calcium measurement (mass/volume) 9.5 mg/dL 8.5-10.1 Serum or plasma total bilirubin measurement (mass/volume) 0.4 mg/dL 0.1-1.0 Serum or plasma alkaline phosphatase measurement (enzymatic activity/volume) 51 U/L 40-136 Serum or plasma aspartate aminotransferase measurement (enzymatic activity/volume) 29 U/L 5-34 Serum or plasma alanine aminotransferase measurement (enzymatic activity/volume) 32 U/L 0-55 Serum or plasma protein measurement (mass/volume) 8.4 g/dL 6.4-8.2 Serum or plasma albumin measurement (mass/volume) 4.2 g/dL 3.2-4.5 CALCIUM CORRECTED 9.3 mg/dL 8.5-10.1 Magnesium - 01/14/19 23:05 Magnesium 2.5 mg/dL 1.8-2.4 Serum or plasma creatine kinase measurement (enzymatic activity/volume) - 01/14/19 23:05 Serum or plasma creatine kinase measurement (enzymatic activity/volume) 589 U/L 30-200 Serum or plasma creatine kinase MB measurement (enzymatic activity/volume) - 01/14/19 23:05 Serum or plasma creatine kinase MB measurement (enzymatic activity/volume) 2.0 ng/mL <6.6 Serum or plasma troponin i.cardiac measurement (mass/volume) - 01/14/19 23:05 Serum or plasma troponin i.cardiac measurement (mass/volume) < ng/mL <0.028 Ammonia - 01/14/19 23:05 Ammonia 19 umol/L 11-32 Serum or plasma thyrotropin measurement by detection limit <=0.05 miu/l (units/volume) - 01/14/19 23:05 Serum or plasma thyrotropin measurement by detection limit <=0.05 miu/l (units/volume) 1.56 u[iU]/mL 0.35-4.94 Serum or plasma acetaminophen measurement (mass/volume) - 01/14/19 23:05 Serum or plasma acetaminophen measurement (mass/volume) < ug/mL 10-30 Serum or plasma ethanol measurement (mass/volume) - 01/14/19 23:05 Serum or plasma ethanol measurement (mass/volume) < mg/dL <10 Blood lactic acid measurement (moles/volume) - 01/15/19 00:10 Blood lactic acid measurement (moles/volume) 1.49 mmol/L 0.50- 2.00 Bacterial blood culture - 01/15/19 00:10 Bacterial blood culture NG NRG Bacterial blood culture - 01/15/19 00:21 Bacterial blood culture NG NRG Encounters ACCT No. Visit Date/Time Discharge Status Pt. Type Provider Facility Loc./Unit Complaint [id number] 01/14/2019 22:55:00 01/15/2019 06:00:00 DIS Outpatient ZACH DEL RIO DO [facility] ER BACK PAIN [id number] 12/19/2017 07:23:00 12/19/2017 23:59:59 CLS Outpatient RONALD BALDWIN MD [facility] CARD I35.0 [id number] 11/01/2017 10:08:00 11/01/2017 23:59:59 CLS Preadmit SAMMI GRAY [facility] CARD I10,J43.8,I65.23 [id number] 11/01/2017 10:07:00 11/01/2017 23:59:59 CLS Preadmit RONALD BALDWIN MD [facility] CARD I35.0,I51.9,10 [id number] 09/27/2017 11:58:00 09/27/2017 23:59:59 CLS Outpatient DG MADDEN APRN [facility] CARD R01.0 HEAR MURMUR [id number] 04/25/2017 09:45:00 04/25/2017 23:59:59 CLS Outpatient DG MADDEN APRN [facility] RAD M25.551 [id number] 04/14/2016 19:33:00 04/27/2016 09:39:00 DIS Inpatient JOSE RAFAEL RIOJAS MD [facility] IRF DX PARKINSON'S DX [id number] 02/18/2016 13:45:00 02/18/2016 14:21:00 DIS Outpatient MATTIE KILGORE MD [facility] REHAB LOWER EXTREMITY WEAKNESS [id number] 02/13/2016 13:08:00 02/13/2016 23:59:59 CLS Outpatient MATTIE KILGORE MD [facility] RAD SPINAL ENTHESOPATHY [id number] 12/29/2015 08:34:00 12/29/2015 23:59:59 CLS Outpatient MATTIE KILGORE MD [facility] RAD PARKINSONS DISEASE [id number] 01/29/2019 13:35:00 Document Registration [id number] 12/26/2015 10:17:00 Document Registration [id number] 09/18/2012 12:20:00 Document Registration [id number] 09/12/2012 07:33:00 Document Registration [id number] 12/10/2011 12:43:00 Document Registration [id number] 06/14/2011 14:32:00 Document Registration [id number] 05/25/2011 19:43:00 Document Registration [id number] 05/05/2011 14:05:00 Document Registration [id number] 05/05/2011 08:30:00 Document Registration
[2019-03-14 14:49] LABS: INR 1.3 (0.8-1.4); PROTHROMBIN TIME PATIENT 17.1 SEC (12.2-14.7)
[2019-03-14 14:53] LABS: BUN/CREATININE RATIO 25; CARBON DIOXIDE 21 MMOL/L (21-32); CHLORIDE 103 MMOL/L (98-107); CREATININE SERUM 0.92 MG/DL (0.60-1.30); POTASSIUM 4.3 MMOL/L (3.6-5.0); SODIUM 152 MMOL/L (135-145)
[2019-03-14 14:54] LABS: ALANINE AMINOTRANSFERASE 39 U/L (0-55); ALBUMIN 3.7 GM/DL (3.2-4.5); ALKALINE PHOSPHATASE 44 U/L (40-136); BILIRUBIN,TOTAL 0.5 MG/DL (0.1-1.0); CALCIUM 8.5 MG/DL (8.5-10.1); CREATINE KINASE 1653 U/L (30-200); GFR ESTIMATED > 60; GLUCOSE 95 MG/DL (70-105); MAGNESIUM 1.8 MG/DL (1.8-2.4); TOTAL PROTEIN 7.4 GM/DL (6.4-8.2)
[2019-03-14 14:56] LABS: BASOPHILS % (AUTO) 0 % (0-10); EOSINOPHILS % (AUTO) 0 % (0-10); HEMATOCRIT 52 % (40-54); HEMOGLOBIN 17.2 G/DL (13.3-17.7); LYMPHOCYTES # (AUTO) 1.1 X 10^3 (1.0-4.0); LYMPHOCYTES % (AUTO) 7 % (12-44); MEAN CORPUSCULAR HEMOGLOBIN 28 PG (25-34); MEAN CORPUSCULAR HGB CONC 33 G/DL (32-36); MEAN CORPUSCULAR VOLUME 84 FL (80-99); MEAN PLATELET VOLUME 9.5 FL (7.4-10.4); MONOCYTES # (AUTO) 1.2 X 10^3 (0.0-1.0); MONOCYTES % (AUTO) 8 % (0-12); NEUTROPHILS # (AUTO) 12.2 X 10^3 (1.8-7.8); NEUTROPHILS % (AUTO) 84 % (42-75); PLATELET COUNT 377 10^3/uL (130-400); RED CELL DISTRIBUTION WIDTH 15.2 % (10.0-14.5); WHITE BLOOD COUNT 14.5 10^3/uL (4.3-11.0)
[2019-03-14 15:06] LABS: CREATINE KINASE MB 13.1 NG/ML (<6.6)
[2019-03-14 15:18] LABS: BASOPHILS % (MANUAL) 1 %; LYMPHOCYTES % (MANUAL) 9 %; MONOCYTES % (MANUAL) 7 %; NEUTROPHILS % (MANUAL) 83 %; RBC MORPH NORMAL
[2019-03-14] MEDS ORDERED: NS IV 1000 ML 1,000 ML IV ONE (15:33)
--- NOTE | 2019-03-14 15:36 | Diagnostic Imaging Report ---
PROCEDURE: CT head and CT cervical spine without contrast. TECHNIQUE: Multiple contiguous axial images were obtained through the brain and cervical spine without the use of intravenous contrast. Sagittal and coronal reformations through the cervical spine were then performed. Auto Exposure Controls were utilized during the CT exam to meet ALARA standards for radiation dose reduction. INDICATION: Found on floor. COMPARISON: Correlation is made with prior CT from 01/14/2019. FINDINGS: CT head: The ventricles and sulci are stable in appearance. No sulcal effacement, midline shift, or hemorrhage is detected. Cisterns are patent. Visualized paranasal sinuses are clear. IMPRESSION: No acute intracranial process is detected. CT cervical spine: Postop changes of ACDF with anterior plate and screws transfixing the C3-C4 level are again noted. Hardware appears to be intact. No fractures are identified. Prevertebral tissues are within normal limits. Odontoid appears intact. There is generalized degenerative disc disease with disc space narrowing and marginal spurring. IMPRESSION: Cervical spondylosis and postsurgical changes. No acute bony abnormality is detected. Dictated by: Dictated on workstation # [id number]
--- NOTE | 2019-03-14 15:47 | Diagnostic Imaging Report ---
PROCEDURE: CT thoracic and lumbar spine without contrast. TECHNIQUE: Multiple contiguous axial images were obtained through the thoracic and lumbar spine without the use of intravenous contrast. Sagittal and coronal reformations were then performed. INDICATION: Found on floor. FINDINGS: There is mild right convexity thoracic scoliotic curvature. There is slight left convexity lumbar scoliotic curvature. This is best seen on the coronal reconstructions. The most upper portion of thoracic spine does not appear to be included on this study. However, this was included on the CT cervical spine portion. Vertebral body heights appear to be maintained. There is some generalized thoracic and lumbar spondylosis with variable disc space narrowing and spurring. No fractures are identified. Paraspinous tissues are unremarkable. There is some atelectasis in the left lower lobe posteriorly. IMPRESSION: Thoracolumbar spondylosis and scoliosis. No acute bony abnormality is detected. Dictated by: Dictated on workstation # [id number]
[2019-03-14] MEDS ORDERED: TETANUS,DIPTH,PERTUSS P/F (BOOSTRIX) 0.5 ML VIAL IM ONE (16:00)
[2019-03-14 16:29] LABS: BILIRUBIN,URINE NEGATIVE (NEGATIVE); CLARITY,URINE CLEAR; COLOR,URINE AMBER; GLUCOSE, URINE (UA) NEGATIVE (NEGATIVE); KETONES,URINE 4+ (NEGATIVE); LEUKOCYTE ESTERASE ,URINE NEGATIVE (NEGATIVE); NITRITE,URINE NEGATIVE (NEGATIVE); PH,URINE 6 (5-9); PROTEIN,URINE 3+ (NEGATIVE); UROBILINOGEN,URINE 1 MG/DL (NORMAL)
--- NOTE | 2019-03-14 16:29 | Diagnostic Imaging Report ---
INDICATION: Fall. COMPARISON: 01/14/2019. EXAMINATION: Single view of the chest was obtained. FINDINGS: Old right rib deformities, chronic. No acute chest wall fracture deformity identified. No pneumothorax. Cardiomediastinal and hilar contours are stable. No free air beneath the diaphragms. IMPRESSION: Stable chronic findings. Dictated by: Dictated on workstation # [id number]
--- NOTE | 2019-03-14 16:30 | Diagnostic Imaging Report ---
INDICATION: Pelvic injury from a fall. EXAMINATION: Single view pelvis. FINDINGS: AP view of the pelvis shows no fracture or dislocation. IMPRESSION: No acute abnormality seen in the pelvis. Dictated by: Dictated on workstation # [id number]
[2019-03-14 16:43] LABS: BACTERIA,URINE NEGATIVE /HPF; SQUAMOUS EPITHELIAL CELL,UR RARE /HPF
--- NOTE | 2019-03-14 16:49 | NUR ---
TALKED WITH GU[facility]MAN JONES WHO STATES IT WILL BE AWILE BEFORE THEY CAN TRANSFER TO [facility] DUE TO MULTIPLE TRANSFERS. TALKED WITH [facility] WHO WILL CALL US BACK CONCERNING A TRANSFER. TALKED WITH DAVID LARA FROM [facility] WHO WILL CALL US BACK CONCERNING THE TRANSFER.
--- NOTE | 2019-03-14 17:03 | NUR ---
WILL FROM [facility] CALLED BACK ET STATES [facility] WILL BE HERE IN ABOUT AN HOUR TO TRANSPORT THE PT.
[2019-03-14 18:33] VITALS: BP 149/80
[2019-03-14] MEDS ORDERED: CARB1TAB19 (18:36)
[2019-03-14] MEDS ORDERED: LEVO50TA6 (18:36)
[2019-03-14] MEDS ORDERED: PRAM1TAB5 (18:36)
--- NOTE | 2019-03-23 07:38 | ED General ---
General Chief Complaint: Trauma-Non Activation Stated Complaint: FALL Nursing Triage Note: FOUND ON FLOOR OF HIS OWN HOME, VERBALIZED HE HAD BEEN THERE FOR 4 DAYS. STATES HE WAS DRYING HIS HAIR AND FELL Nursing Sepsis Screen: No Definite Risk Source of Information: EMS, Old Records (ALL PMH IS FROM OLD RECORDS) Exam Limitations: Other (PT UNABLE TO GIVE ANY RELEVANT INFORMATION ) History of Present Illness Date Seen by Provider: March 14, 2019 Time Seen by Provider: 14:14 Initial Comments PT ARRIVES VIA EMS FROM HOME PT WITH GENERALIZED WEAKNESS--PT HAS BEEN LAYING IN THE BATHTUB FOR THE LAST 4 DAYS AND HAS NOT BEEN ABLE TO GET UP--PT OBVIOUSLY DID NOT TAKE A BATH AT ANY TIME FAMILY CALLED POLICE TO DO A WELFARE CHECK ON HIM THEY HAD NOT BEEN ABLE TO REACH HIM. PT CLAIMS HE WAS DRYING HIS HAIR AND FELL--IS OBVIOUS THAT PT'S HAIR HAS NOT BEEN WASHED FOR A LONG TIME PT HAS NOT EATEN OR DRANK OR HAD ANY MEDICATIONS FOR 4 DAYS EMS REPORT THAT HIS BED SHEETS HAVE BEEN SATURATED / DRIED WITH URINE BLOOD GLUCOSE 84 ON ARRIVAL, PT IS ORIENTED TO YEAR ONLY, ORIENTED TO PLACE, BUT NOT ORIENTED TO SITUATION AT ALL, AND IS VERY MINIMALLY VERBAL PT LETHARGIC, HAS VERY FLAT AFFECT AND HAS A BLANK STARE--DOES NOT MAKE EYE CONTACT. PT DID C/O BACK PAIN DENIES HEAD OR NECK PAIN DENIES NUMBNESS OR TINGLING ANYWHERE, AND PT DOES HAVE MOVEMENT OF ALL EXTREMITIES BUT IS GENERALLY WEAK ON REVIEW OF OLD RECORDS, PT WAS BROUGHT TO ER FOR A SIMILAR SITUATION ON 01/14/19, AND APPEARS TO BE A CHRONIC/ RECURRENT ISSUE WITH PT, WITH DEMENTIA, PARKINSON'S AND FREQUENT FALLS PT HAS A HISTORY OF CHRONIC BACK PAIN PT HAS BEEN PRESCRIBED OXYCODONE AND PRAMIPEXOLE, THC AND CBD OIL, AND PER OLD RECORDS PT HAS A HISTORY OF DRUG ABUSE AND EXCESSIVE USE OF DRUGS, ESPECIALLY NARCOTICS. PT ALSO DRINKS ALCOHOL ON A REGULAR BASIS Location Injury Occurred: HOME PCP: DR. KILGORE Allergies and Home Medications Allergies Coded Allergies: No Known Drug Allergies (Unverified , 03/14/19) Home Medications Hydrocodone/Acetaminophen 1 Each Tablet, 1 EA PO Q4H PRN for PAIN Prescribed by: JOSE RAFAEL RIOJAS on 04/26/16 1627 Neomycin Farrell/Bacitrac Zn/Poly 28.3 Gm Oint...g., 0 GM TOP BID PRN for drainage/itching Prescribed by: JOSE RAFAEL RIOJAS on 04/26/161626 [Multivitamins/Minerals Therap] 1 EA TABLET, 1 EA PO DAILY@0700 Prescribed by: JOSE RAFAEL RIOJAS on 04/26/161626 Patient Home Medication List Home Medication List Reviewed: Yes Review of Systems Review of Systems Constitutional: see HPI Musculoskeletal: back pain Skin: other (PT HAS ERYTHEMA TO BACK , CHEST AND BILATERAL AXILLA, WITH ABRASIONS TO MULTIPLE SITES, WELL OLD SCABBED WOUNDS TO VARIOUS PARTS OF BODY. ) Psychiatric/Neurological: See HPI Past Xziifpy-Eovljl-Rzymcq Hx Patient Social History Alcohol Use: Regular Use Number of Drinks Today: AA Alcohol Beverage of Choice: Beer Recreational Drug Use: Yes (THC, AND RX DRUG ABUSE/EXCESSIVE USE) Drug of Choice: THC AND RX DRUG ABUSE/EXCESSIVE USE Smoking Status: Never a Smoker 2nd Hand Smoke Exposure: No Recent Foreign Travel: No Contact w/Someone Who Travel: No Recent Infectious Disease Expo: No Recent Hopitalizations: No Physical Abuse: No Sexual Abuse: No Mistreated: No Fear: No Immunizations Up To Date Tetanus Booster (TDap): Unknown Seasonal Allergies Seasonal Allergies: No Past Medical History Surgeries: Yes (CERVICAL SPINE [id number]; COLONOSCOPY) Orthopedic Respiratory: No Cardiac: Yes High Cholesterol, Hypertension Neurological: Yes Dementia, Parkinson's Disease Reproductive Disorders: No Sexually Transmitted Disease: No HIV/AIDS: No Genitourinary: No Gastrointestinal: Yes (DIVERTICULOSIS NOTED ON SCREENING COLONOSCOPY) Diverticulosis Musculoskeletal: Yes (CHRONIC NECK AND BACK PAIN--S/P C-SPINE SURGERY; FREQUENT FALLS, IMPAIRED MOBILITY) Chronic Back Pain Endocrine: No HEENT: Yes (WERS GLASSES) Hearing Impairment: Hard of Hearing, Bilateral Hearing Aide Cancer: No Psychosocial: No Integumentary: No Blood Disorders: No Family Medical History Cancer, Cerebral Aneurysm Physical Exam Vital Signs Capillary Refill : Less Than 3 Seconds Height, Weight, BMI Height: 5'7.00" Weight: 187lbs. 0.0oz. [id number]; 29.3 BMI Method:Stated General Appearance: Thin, Other (EXTREMELY MALODOROUS, UNKEMPT/VERY POOR HYGIENE; BLANK STARE, MINIMALLY VERBAL, VERY FLAT AFFECT, LETHARGIC. ) HEENT: PERRL/EOMI, Other (SUPERFICIAL ABRASION TO OCCIPUT. NO SWELLING OR BONY DEFORMITY. ) Neck: Non Tender Respiratory: Chest Non Tender, Normal Breath Sounds, No Accessory Muscle Use, No Respiratory Distress Cardiovascular: Regular Rate, Rhythm, No Edema, No Murmur, Normal Peripheral Pulses Gastrointestinal: Non Tender, Soft Back: No CVA Tenderness, No Vertebral Tenderness Extremity: Non Tender, No Pedal Edema Neurologic/Psychiatric: Other (MENTATION ABOVE, ORIENTED TO PERSON, YEAR AND PLACE, BUT NOT ORIENTED TO SITUATION. MOVES ALL EXTREMETIES, BUT SLOW TO FOLLOW SIMPLE COMMANDS. ) Skin: Normal Color, Warm/Dry, Other (ERYTHEMA TO CHEST, BILATERAL AXILLA, UPPER BACK; SUPERFICIAL ABRASIONS TO OCCIPUT, BACK AND COCCYX; OLDER SCABBED ABRASIONS SCATTERED ON BODY INCLUDING RIGHT HIP. BRUISES TO BOTH KNEES OF VARIOUS AGES. ) Progress/Results/Core Measures Suspected Sepsis Recent Fever Within 48 Hours: No Infection Criteria Present: None New/Unexplained Altered Menta: Yes Sepsis Screen: No Definite Risk SIRS Temperature:98.0 Pulse: 88 Respiratory Rate: 18 Blood Pressure 149 /80 Mean: 103 Results/Orders Vital Signs/I&O Capillary Refill : Less Than 3 Seconds Blood Pressure Mean: 103 Progress Note : Progress Note NO DETERIORATION IN PT'S CONDITION DURING ER STAY VITALS STABLE AT TIME OF TRANSFER ECG Initial ECG Impression Date: March 14, 2019 Initial ECG Impression Time: 14:28 Initial ECG Rate: 73 Initial ECG Rhythm: Normal Sinus Initial ECG Comparisson: Unchanged Diagnostic Imaging Comments XRAYS AND CT SCANS PER RADIOLOGIST REPORTS AT 1553: CT HEAD AND CERVICAL SPINE; CT THORACIC AND LUMBAR SPINE CXR PELVIS XRAY LEFT LOWER LOBE ATELECTASIS DEGENERATIVE DISC DISEASE NO ACUTE PROCESS Reviewed: Reviewed by Me Departure Communication (Admissions) NO BEDS AVAILABLE HERE 1625--CALLED [facility], HAVE BEDS 1633--SPOKE WITH DR GARCIA AT [facility], ACCEPTS PT FOR TRANSFER Impression Primary Impression: Status post fall Additional Impressions: INABILITY TO GET OUT OF BATHTUB FOR 4 DAYS POOR AMBULATION Dementia Parkinson disease Generalized weakness Dehydration EARLY RHABDOMYOLYSIS Disposition: 02 XFER SHT-TRM HOSP Condition: Stable Transfer Transfer Facility: [facility] Method of Transfer: EMS Departure-Patient Inst. Referrals: MATTIE KILGORE MD (PCP) Primary Care Physician ZACH DEL RIO DO Mar 23, 2019 07:38
== END 2019-03-14 18:33 | disposition short-term general hospital (02) ==
LOC: EDUNIT# 14:13 → ER 14:14
DX: S20.319A Abrasion of unspecified front wall of thorax, initial encounter (principal); S40.811A Abrasion of right upper arm, initial encounter; S40.812A Abrasion of left upper arm, initial encounter; S20.419A Abrasion of unspecified back wall of thorax, initial encounter; G20 Parkinson's disease; F02.80 Dementia in other diseases classified elsewhere, unspecified severity, without behavioral disturbance, psychotic disturbance, mood disturbance, and anxiety; R26.9 Unspecified abnormalities of gait and mobility; R53.1 Weakness; E86.0 Dehydration; M62.82 Rhabdomyolysis; E78.00 Pure hypercholesterolemia, unspecified; I10 Essential (primary) hypertension; F10.10 Alcohol abuse, uncomplicated; F12.10 Cannabis abuse, uncomplicated; F19.10 Other psychoactive substance abuse, uncomplicated; Z98.890 Other specified postprocedural states; Z87.19 Personal history of other diseases of the digestive system; Z91.81 History of falling; W18.30XA Fall on same level, unspecified, initial encounter
CPT/HCPCS: 36415; 51702; 70450; 71045; 72125; 72128; 72131; 72170; 80053; 81000; 82550; 82553; 83605; 83735; 83874; 84484; 85007; 85027; 85610; 85730; 90471; 90715; 93005; 93041; 96360

== ENCOUNTER → 2020-11-28 | Outpatient (CLI) | payer MEDICARE, OTHER ==
[~2020-11-28] MED LIST changes: +ACHYD1T; +ACHYD1T PO; +CARB1TAB19; +CATHETER FLUSH 10 ML SYR IV PRN; +HOLD METFORMIN - RECEIVED CONTRAST 20 ML VIAL IV SCH; -HYDR-3820; -HYDR-3820 PO; +IOHEXOL 350 MG/ML 100 ML (OMNIPAQUE 350) VIAL IV ONE; +LEVO50TA6; +NS 100 ML (IVPB) BAG IV ONE; +PRAM1TAB5; +SIMV40TA25; -SIMV40TA4
--- NOTE | 2020-11-28 09:50 | Diagnostic Imaging Report ---
PA and lateral chest at 9:24. Indication: Abnormal weight loss. The heart size is within normal limits and stable when compared to 03/14/2019. The lungs are clear. There is no evidence for failure, pneumonia or for pleural effusion. The mediastinum is not widened. The osseous structures show no sign of an acute injury. As on the prior exam there are multiple healed rib fractures on the right. Impression: There is no evidence for active disease. Dictated by: Dictated on workstation # [id number]
--- NOTE | 2020-11-28 10:12 | Diagnostic Imaging Report ---
PROCEDURE: CT abdomen and pelvis with contrast. TECHNIQUE: Multiple contiguous axial images were obtained through the abdomen and pelvis after administration of intravenous contrast. Auto Exposure Controls were utilized during the CT exam to meet ALARA standards for radiation dose reduction. All CT scans use one or more of the following dose optimizing techniques: automated exposure control, MA and/or KvP adjustment based on patient size and exam type or iterative reconstruction. INDICATION: Abnormal weight loss. COMPARISON: 04/14/2016 FINDINGS: Included portions of the lung bases show small micronodule within the posterior lateral subpleural margins of the left lower lobe. It measures 6 mm. This is not significantly changed compared to 5 mm on exam dated 04/14/2016. There are some patchy densities within the right base as well. Within this area, there is also more well-circumscribed 1.2 cm nodular density (image 6, series 2). CT ABDOMEN: There is somewhat thickened appearance to the wall of the high sigmoid colon. Please note, CT is suboptimal to assess for colonic mass. Normal appendix cannot be adequately identified, but there is no pericecal inflammation. Small bowel loops are nondistended. Benign-appearing right renal cyst is present. Otherwise, the kidneys, adrenal glands, spleen, pancreas, and liver have a normal CT appearance. There is no loculated fluid collection, free fluid or free air within the abdomen. No abnormal mesenteric or retroperitoneal adenopathy is seen. There is moderate scattered calcified aortic and arterial atherosclerosis. CT PELVIS: Urinary bladder is grossly unremarkable. There is no loculated fluid collection, free fluid or free air within the pelvis. No abnormal lymph nodes are identified. Osseous structures show no acute abnormalities. IMPRESSION: 1. Thickened appearance to the wall of the high sigmoid colon. This could be artifactual and related to incomplete distention. Infectious or inflammatory colitis may have a similar appearance. Colonic malignancy cannot be excluded. Correlation with colonoscopy is recommended. 2. Nodular density within the right lung base. Given the surrounding patchy peripheral opacities, this could represent small rounded focus of atelectasis or infiltrate. True soft tissue nodule is not excluded. Short interval 3 month follow-up with dedicated CT of the chest is recommended. Dictated by: Dictated on workstation # [id number]
== END ==
LOC: RAD 09:16
DX: R63.4 Abnormal weight loss (principal); R92.2 Inconclusive mammogram
CPT/HCPCS: 71046; 74177

== ENCOUNTER 2020-12-08 10:40 | Outpatient (RCR) | payer MEDICARE, OTHER ==
[~2020-12-08] VITALS: Ht 170 cm; Wt 60.5 kg
[~2020-12-08 10:40] MED LIST changes: -CATHETER FLUSH 10 ML SYR IV PRN; -HOLD METFORMIN - RECEIVED CONTRAST 20 ML VIAL IV SCH; -IOHEXOL 350 MG/ML 100 ML (OMNIPAQUE 350) VIAL IV ONE; -NS 100 ML (IVPB) BAG IV ONE
== END 2020-12-08 14:38 | disposition home or self-care (01) ==
LOC: PREOP 10:40
PROVIDERS: ATTEND Surgery
DX: Z01.818 Encounter for other preprocedural examination (principal)

== ENCOUNTER 2020-12-10 10:37 | Day surgery (SDC) | payer MEDICARE, OTHER, MEDICAID ==
[2020-12-10] VITALS (7 sets, daily range): BP systolic 112–128; BP diastolic 63–75
[~2020-12-10] VITALS: Ht 170 cm; Wt 60.5 kg
[2020-12-10] MEDS ORDERED: LACTATED RINGERS 1,000 ML IV ONE ×3 (11:15→12:34)
--- NOTE | 2020-12-10 11:54 | Progress Note-Pre Operative ---
Pre-Operative Progress Note H&P Reviewed The H&P was reviewed, patient examined and no changes noted. Date Seen by Provider: Dec 10, 2020 Time Seen by Provider: 11:00 Date H&P Reviewed: Dec 10, 2020 Time H&P Reviewed: 11:00 Pre-Operative Diagnosis: weight loss, susp CT JENNIE URRUTIA MD Dec 10, 2020 11:53
--- NOTE | 2020-12-10 11:55 | Discharge Inst-Surgical ---
D/C Lap Instructions-GHADA Follow Up Activity as tolerated High Fiber Diet 25g or more per day Avoid Alcohol, Caffeine, Spicy [place] and Acid foods. Drink 64 fluid oz or more of fluids per day. Symptoms to Report: Fever over 101 degree F, Nausea/Vomiting If any problems/questions: Contact your physician or go to Emergency Room JENNIE URRUTIA MD Dec 10, 2020 11:55
[2020-12-10] MEDS ORDERED: HYDROcodone/APAP 5 MG/325 MG (LORTAB) TAB PO PRN (12:00)
[2020-12-10] MEDS ORDERED: ONDANSETRON 4 MG/2 ML (SDV) Z0FRAN IVP PRN (12:00)
[2020-12-10] MEDS ORDERED: ACETAMINOPHEN 325 MG TABLET PO PRN (12:00)
[2020-12-10] MEDS ORDERED: morphine INJ 10 MG/ML 1ML (SYR OR VIAL) IVP PRN ×2 (12:00)
[2020-12-10] MEDS ORDERED: LIDOCAINE JELLY 2% 6 ML SYRINGE ONE (12:33)
[2020-12-10] MEDS ORDERED: HURRICAINE EXT TUBE (BENZOCAINE) ONE (12:33)
[2020-12-10] MEDS ORDERED: PROPOFOL INJECTION 50 ML IV ONE (12:34)
[2020-12-10] MEDS ORDERED: HURRICAINE EXT TUBE (BENZOCAINE) XX ONE (13:00)
[2020-12-10] MEDS ORDERED: LIDOCAINE JELLY 2% 6 ML SYRINGE TOP ONE (13:00)
--- NOTE | 2020-12-10 14:44 | Anesthesia-General Post-Op ---
MAC Patient Condition Mental Status/LOC: Same as Preop Cardiovascular: Satisfactory Nausea/Vomiting: Absent Respiratory: Satisfactory Pain: Controlled Complications: Absent Post Op Complications Complications None Follow Up Care/Instructions Patient Instructions None needed. Anesthesiology Discharge Order Discharge Order Patient is doing well, no complaints, stable vital signs, no apparent adverse anesthesia problems. No complications reported per nursing. JAVI NGUYEN CRNA Dec 10, 2020 14:44
--- NOTE | 2020-12-10 14:50 | Progress Note-Post Operative ---
Post-Operative Progess Note Surgeon (s)/Office Machine Installer (s) Surgeon JENNIE URRUTIA MD Office Machine Installer: none Pre-Operative Diagnosis weight loss, susp CT Post-Operative Diagnosis reflux esophagitis(stage 2-3), mild distal esoph stricture, small HH(2cm), moderate gastritis. chronic stage 2 ext and int hemorrhoids, rectal lesion, sigmoid colon lesion, diffuse patchy colitis. Procedure & Operative Findings Date of Procedure 12/10/20 Procedure Performed/Findings EGD with bx and balloon dilatation. colonosocpy with bx. Anesthesia Type mac Estimated Blood Loss Estimated blood loss (mL): minimal Specimens/Packing Specimens Removed ge jxn, antrum, rectal lesion, sigmoid lesion JENNIE URRUTIA MD Dec 10, 2020 14:50
--- NOTE | 2020-12-10 18:09 | OPERATIVE REPORT ---
DATE OF SERVICE: 12/10/2020 ATTENDING PRIMARY CARE PHYSICIAN: Dr. Alberto Jones. PREOPERATIVE DIAGNOSES: Weight loss, abnormal CT scan. POSTOPERATIVE DIAGNOSES: Reflux esophagitis between stage II and III with a mild distal esophageal stricture, small to moderate size hiatal hernia 2.5 cm in size, moderate gastritis. Chronic stage II external and internal hemorrhoids, low rectal mass, which is concerning for neoplasm, inflammation versus mass of the sigmoid colon, patchy white inflammatory spots scattered throughout the colon. PROCEDURE: EGD with biopsy and balloon dilatation, colonoscopy with biopsy. SURGEON: Jennie Urrutia MD ANESTHESIA: Monitored anesthesia care. ESTIMATED BLOOD LOSS: Minimal. FINDINGS: Reflux esophagitis between stage II and III with a mild distal esophageal stricture, small to moderate size hiatal hernia 2.5 cm in size, moderate gastritis. Chronic stage II external and internal hemorrhoids, low rectal mass, which is concerning for neoplasm, inflammation versus mass of the sigmoid colon, patchy white inflammatory spots scattered throughout the colon. DISPOSITION: The patient tolerated the procedure well. INDICATIONS: The patient is a 69-year-old male who was referred over to us for weight loss and abnormal CT scan. 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 He did have a CT scan on 11/28/2020, which did show some thickening along the wall of the sigmoid colon. Again, he is nonverbal and cannot give any history. DESCRIPTION OF PROCEDURE: The patient was brought to the endoscopy suite, laid in the left lateral decubitus position with head slightly elevated. After adequate IV pain and sedative medications and monitored anesthesia care, the mouthpiece was applied. Endoscope was then placed in the mouth, visualizing the pharynx and hypopharyngeal region. Vocal cords, epiglottis and vallecula identified and appeared to be normal. The endoscope was then gently intubated esophageal opening and esophagus insufflated. The endoscope was then advanced through the first, second and third portion of esophagus at the level of the GE junction. A reflux esophagitis stage II identified. There was a mild distal esophageal stricture also identified in this region. A biopsy was taken with forceps with visualization of good hemostasis. The endoscope was then advanced into the stomach and endoscope retroflexed, visualizing a small to moderate size hiatal hernia approximately 2.5 cm in size. There was a moderate severity gastritis. No formal ulcerations, polyps, or any neoplasms identified. A biopsy was taken of the antrum to rule out H. pylori with visualization of good hemostasis. The endoscope was then advanced through the pylorus into the first and second portion of the duodenum, which appeared normal with no distal obstructions. We then proceeded with balloon dilatation of the distal esophageal stricture and the balloon was placed in the stomach and pulled back to the area of stricture and first insufflated to 2 and then 4, then 6 atmospheres of pressure with moderate to significant resistance and left this in place for approximately 60 seconds. The balloon was then desufflated and removed with visualization of good hemostasis as well as no mucosal tears. The endoscope was then slowly withdrawn while taking a second look and suctioning of residual air with no additional findings. Under the same anesthesia, we then proceeded with the colonoscopy portion of procedure where a digital rectal examination was performed, which did reveal chronic stage II external and internal hemorrhoids; however, a mass within the distal rectum was palpable and hard and worrisome for malignancy. The endoscope was then intubated and anus and rectum gently insufflated with the mass was identified and several biopsies were taken with forceps with visualization of good hemostasis. We then proceeded through the sigmoid colon where an area of either patchy inflammation versus a sigmoid colonic mass was identified and this was biopsied with forceps with visualization of good hemostasis. The endoscope was then advanced to the remainder of the descending, transverse and ascending colon to the cecum where throughout these regions, there were patchy white inflammatory changes. This may reflect some level of inflammatory bowel disease that has been undiagnosed for many years. The endoscope was then slowly withdrawn while taking a second look and suctioning of residual air with no additional findings. The patient tolerated the procedure well. We will await the biopsy results and if there is a malignancy identified, we will refer him to oncology for neoadjuvant chemoradiation if the patient does choose to do so. Job ID: [id number] DocumentID: [id number] Dictated Date: 12/10/2020 13:49:56 Hedge Fund Manager Date: 12/10/2020 18:08:41 Dictated By: JENNIE URRUTIA MD
== END 2020-12-10 15:05 ==
LOC: ENDO 10:37
PROVIDERS: ATTEND Surgery
DX: K29.50 Unspecified chronic gastritis without bleeding (principal); K21.00 Gastro-esophageal reflux disease with esophagitis, without bleeding; K22.2 Esophageal obstruction; K44.9 Diaphragmatic hernia without obstruction or gangrene; K64.1 Second degree hemorrhoids; I10 Essential (primary) hypertension; F32.9 Major depressive disorder, single episode, unspecified; E03.9 Hypothyroidism, unspecified; M19.90 Unspecified osteoarthritis, unspecified site; G20 Parkinson's disease; G89.29 Other chronic pain; D50.9 Iron deficiency anemia, unspecified; Z79.899 Other long term (current) drug therapy; Z80.9 Family history of malignant neoplasm, unspecified
CPT/HCPCS: 88305

== ENCOUNTER → 2021-01-12 | Outpatient (CLI) | payer MEDICARE, OTHER, MEDICAID | LOC: WOUNDCARE 10:26 | PROVIDERS: ATTEND Surgery | DX: L89.154 Pressure ulcer of sacral region, stage 4 (principal); G20 Parkinson's disease; E44.1 Mild protein-calorie malnutrition; M62.3 Immobility syndrome (paraplegic) | CPT/HCPCS: 11043; 87070; 87075; 87077; 87205 ==